=== PATIENT | female | born 1990 | race African-American/Black ===

== ENCOUNTER 2019-08-10 07:35 | Observation (INO) | payer MEDICAID, OTHER ==
--- NOTE | 2019-08-10 08:00 | NUR ---
COVID 19 Test PT consented for COVID 19 test, test collected, PT tolerated well. Test sent to lab
== END 2019-08-10 08:05 | disposition home or self-care (01) | DRG 566 ==
LOC: LDRP 07:35
PROVIDERS: ADMIT Obstetrics & Gynecology; ATTEND Obstetrics & Gynecology
DX: O26.893 Other specified pregnancy related conditions, third trimester (principal); Z11.59 Encounter for screening for other viral diseases; Z3A.38 38 weeks gestation of pregnancy
CPT/HCPCS: G0378; U0003

== ENCOUNTER 2019-08-12 08:10 | Inpatient (IN) | payer MEDICAID ==
[~2019-08-12] VITALS: Ht 160 cm; Wt 78.9 kg
[2019-08-12] VITALS (14 sets, daily range): BP systolic 96–124; BP diastolic 45–73
[2019-08-12] MEDS: LACTATED RINGER'S 1,000 ML IV SCH ×4 (08:45→21:03)
[2019-08-12] MEDS ORDERED: TETRACAINE 1% INJ 2 ML VIAL IJ ONE (09:11)
[2019-08-12 09:22] LABS: Urine Bacteria FEW /hpf (None Seen); Urine Blood Negative /uL (Negative); Urine Mucus FEW (None Seen); Urine Specific Gravity 1.019 (1.001-1.035); Urine WBC 49 /hpf (0 - 5)
[2019-08-12 09:27] LABS: Basophils # (auto) 0 10 ^3/uL (0-0.2); Basophils % (auto) 0.4 % (0.0-2.0); Eosinophils # (auto) 0 10 ^3/uL (0-0.8); Eosinophils % (auto) 0.6 % (0.0-7.0); Hematocrit 39.2 % (36.0-46.0); Hemoglobin 12.9 g/dL (12.2-16.2); Lymphocytes # (auto) 1.3 10 ^3/uL (0.4-5.4); Lymphocytes % (auto) 17.2 % (10.0-50.0); Mean Corpuscular Hemoglobin 31.4 pg (28.0-32.0); Mean Corpuscular Hgb Conc. 32.9 g/dL (32.0-36.0); Mean Corpuscular Volume 95.5 fL (80.0-100.0); Monocytes # (auto) 0.5 10 ^3/uL (0-1.3); Neutrophils # (auto) 5.6 10 ^3/uL (1.6-8.6); Neutrophils % (auto) 74.8 % (37.0-80.0); Nucleated Red Blood Cells % 0.1 %; Platelet Count (auto) 139 10^3/uL (140-450); Red Cell Distribution Width 13.9 % (11.8-14.3); White Blood Cell 7.5 10^3/uL (4.4-10.8)
[2019-08-12] MEDS ORDERED: TERBUTALINE SULFATE 1 MG/ML 1ML VIAL SC ONE ×2 (09:30→09:31)
[2019-08-12 09:32] LABS: INR 0.94 (0.9-1.15); Partial Thromboplastin Time 28.6 sec (23.64-32.05)
[2019-08-12 09:39] LABS: Albumin 3.1 g/dL (3.4-5.0); Calcium 8.7 mg/dL (8.5-10.1)
[2019-08-12 09:41] LABS: Alcohol, Urine < 3.0 mg/dL (0-10); Amphetamine Screen, Urine NEGATIVE (NEGATIVE); Barbiturate Scree,Urine NEGATIVE (NEGATIVE); Benzodiazephine Screen, Urine NEGATIVE (NEGATIVE); Cannabinoid Screen, Urine NEGATIVE (NEGATIVE); Cocaine Screen, Urine NEGATIVE (NEGATIVE); Opiate Scree,Urine NEGATIVE (NEGATIVE); Phencyclidine Screen, Urine NEGATIVE (NEGATIVE)
[2019-08-12 09:42] LABS: BUN/Creatinine Ratio 13.8; Bilirubin, Total 0.7 mg/dL (0.2-1.0); Total Protein 6.9 g/dL (6.4-8.2)
[2019-08-12] MEDS ORDERED: fentaNYL CITRATE 100 MCG/2 ML VL ONE (11:46)
[2019-08-12] MEDS ORDERED: MORPHINE SULF(PF) 0.5MG/ML 10ML VIAL ONE (11:46)
[2019-08-12] MEDS ORDERED: SODIUM CHLORIDE LOCK 10 ML ONE (11:46)
[2019-08-12] MEDS ORDERED: oxyTOCIN 10 UNIT/ML 10ML VIAL ONE (11:46)
[2019-08-12] MEDS ORDERED: ceFAZolin 1GM VL ONE (11:46)
[2019-08-12] MEDS ORDERED: MIDAZOLAM HCL 1MG/1ML-2 ML VIAL ONE (11:46)
[2019-08-12] MEDS ORDERED: ePHEDrine SULFATE 50 MG/ML AMP ONE (11:46)
[2019-08-12] MEDS ORDERED: ONDANSETRON HCL 4 MG/2 ML VIAL ONE (11:46)
[2019-08-12] MEDS ORDERED: BUPIVACAINE/DEXTROSE MPF 0.75% 2 ML AMP IT ONE (13:54)
[2019-08-12] MEDS ORDERED: EPINEPHrine HCL 1 MG/1 ML AMP ONE (13:54)
[2019-08-12] MEDS ORDERED: ceFAZolin 1GM/50ML 50 ML IV SCH (14:45)
[2019-08-12] MEDS ORDERED: ONDANSETRON HCL 4 MG/2 ML VIAL IV PRN (14:45)
[2019-08-12] MEDS ORDERED: ACETAMINOPHEN IV 1000 MG/100ML (10MG/ML) IV ONE (14:45)
[2019-08-12] MEDS ORDERED: HYDROmorphone HCL 2 MG/ML VL IV PRN (14:45)
--- NOTE | 2019-08-12 15:20 | NUR ---
Post Op for LDRP: Report received from pacu jesus RN and sagrario RN. Received patient from PACU via bed B to room 107. Patient A/A/Ox4, abdominal binder and bilateral SCD's are in place, IV fluids placed on pump and infusing per order, incisional site dressing clean/dry/intact and Delgado Catheter to gravity draining clear yellow urine. Incentive Spirometer at bedside and instruction on proper use with return demonstration done by patient.
[2019-08-12] MEDS ORDERED: PREN-96 PO (17:00)
[2019-08-12] MEDS: diphenhdrAMINE HCL 50 MG/1 ML VL IV PRN (17:14)
[2019-08-12] MEDS: KETOROLAC TROMETH 30 MG/ML 1ML VIAL IV SCH (17:48)
[2019-08-12] MEDS: ceFAZolin 1GM/50ML 50 ML IV SCH (21:03)
--- NOTE | 2019-08-12 21:19 | NUR ---
RN called Audrey QUINTERO and gave update on pt. Trending vital signs reviewed. Orders received to give pt a 300 mL bolus of LR and then to recheck the pt blood pressure.
[2019-08-13] VITALS (7 sets, daily range): BP systolic 101–128; BP diastolic 59–70
[2019-08-13] MEDS: KETOROLAC TROMETH 30 MG/ML 1ML VIAL IV SCH ×3 (00:28→11:58)
--- NOTE | 2019-08-13 02:20 | NUR ---
Ambulation: Patient OOB with standby assistance by RN. Patient ambulated to bedside chair with steady gait. Pericare performed by RN teaching provided. Clean gown provided and bed linen changed. Patient ambulated back to bed with steady gait and no distress noted.
--- NOTE | 2019-08-13 04:25 | NUR ---
Huynh catheter dc'd Order to discontinue huynh catheter. Huynh dc'd with clean technique following deflation of balloon. Patient tolerated well with no complaints of pain. 150 ml of clear straw colored urine noted. Continue care.
[2019-08-13] MEDS: ceFAZolin 1GM/50ML 50 ML IV SCH ×2 (04:49→13:17)
[2019-08-13 06:09] LABS: Basophils # (auto) 0.1 10 ^3/uL (0-0.2); Basophils % (auto) 0.5 % (0.0-2.0); Eosinophils # (auto) 0.1 10 ^3/uL (0-0.8); Eosinophils % (auto) 0.6 % (0.0-7.0); Hematocrit 32.3 % (36.0-46.0); Lymphocytes # (auto) 1.2 10 ^3/uL (0.4-5.4); Lymphocytes % (auto) 12.9 % (10.0-50.0); Mean Corpuscular Hemoglobin 32.4 pg (28.0-32.0); Mean Corpuscular Volume 95.4 fL (80.0-100.0); Monocytes # (auto) 0.8 10 ^3/uL (0-1.3); Monocytes % (auto) 8.1 % (0.0-12.0); Neutrophils # (auto) 7.3 10 ^3/uL (1.6-8.6); Neutrophils % (auto) 77.9 % (37.0-80.0); Nucleated Red Blood Cells % 0.1 %; Platelet Count (auto) 115 10^3/uL (140-450); Red Blood Cells 3.38 10^6/uL (4.0-5.20); Red Cell Distribution Width 13.8 % (11.8-14.3); White Blood Cell 9.3 10^3/uL (4.4-10.8)
--- NOTE | 2019-08-13 08:00 | NUR ---
Patient assisted to br, voided 50ml of clear yellow urine. Pericare completed.
[2019-08-13] MEDS ORDERED: HYDROcodone-ACET 5/325MG TAB PO PRN (10:15)
[2019-08-13] MEDS ORDERED: BISACODYL 10 MG RECT SUPP PR PRN (10:15)
[2019-08-13] MEDS: diphenhdrAMINE HCL 50 MG/1 ML VL IV PRN (10:43)
--- NOTE | 2019-08-13 11:19 | NUR ---
Assessment Patient is a 28-year old female who is alert and oriented. Social Service consult regarding history of positive THC during , negative on this visit. Patient and baby drug screen is negative. Discussed with patient UDS and source of positive results. Patient resides with her and will assistance with baby upon discharge. Patient has all supplies as well as car seat for baby and will be bottle feed. Patient has medical insurance for herself and baby and will be following up with provider appt post discharge. Pt has transportation home upon discharge. Due to being history of drug use CPS will not be contacted. Patient has family support. Informed KINJAL Thomson.
--- NOTE | 2019-08-13 19:00 | NUR ---
Bottle-feeding Education: Patient encouraged to breastfeed. Benefits of and the risk of providing formula to was discussed. Patient verbalized understanding of the benefits and is aware of risk and insists on bottle-feeding. Formula provided and instruction on formula preperation from the [facility] booklet reviewed with patient.
[2019-08-13] MEDS: IBUPROFEN 800 MG TAB PO PRN (19:40)
[2019-08-13] MEDS: DOCUSATE SOD 100 MG CAP PO SCH (22:52)
[2019-08-14 03:40] VITALS: BP 101/67
[2019-08-14] MEDS: HYDROcodone-ACET 5/325MG TAB PO PRN ×2 (06:31→15:44)
[2019-08-14 06:55] VITALS: BP 104/66
[2019-08-14 11:25] VITALS: BP 105/60
[2019-08-14] MEDS: DOCUSATE SOD 100 MG CAP PO SCH ×2 (12:49→21:41)
[2019-08-14 15:20] VITALS: BP 120/69
--- NOTE | 2019-08-14 15:54 | NUR ---
IV removal IV DC'd with clean sterile technique, catheter fully intact. Pressure dressing applied to site. Patient tolerated well.
[2019-08-14] MEDS ORDERED: TETANUS-DIPTH-ACEL PERTUSSIS 0.5ML SYR Tdap IM ONE (16:45)
[2019-08-14 19:00] VITALS: BP 96/61
[2019-08-14] MEDS: IBUPROFEN 800 MG TAB PO PRN (21:41)
[2019-08-15 00:30] VITALS: BP 124/70
[2019-08-15 03:00] VITALS: BP 124/70
[2019-08-15 07:00] VITALS: BP 112/66
--- NOTE | 2019-08-15 07:00 | NUR ---
Alva removed by Monisha ROCK CNM Pt tolerated well
--- NOTE | 2019-08-15 07:54 | NUR ---
Discharge: Discharge instructions given as ordered. Pt encouraged to follow up with [facility] as instructed. All questions and concerns addressed. Patient verbalized understanding. Medication reconciliation completed and copy given to patient. All required/requested vaccines given and copies of vaccinations given to patient. Patient encouraged to prepare to depart unit.
--- NOTE | 2019-08-15 08:48 | NUR ---
Discharge: Patient taken to vehicle ambulating with all personal belongings, accompanied by staff and family member. No distress noted at time of departure, no adverse changes in status since initial assessment.
== END 2019-08-15 08:45 | disposition home or self-care (01) | DRG 540 ==
LOC: LDRP 08:10
PROVIDERS: ADMIT Specialist; ATTEND Specialist
PROC: 3E0234Z Introduction of Serum, Toxoid and Vaccine into Muscle, Percutaneous Approach (ICD-10-PCS; 2019-08-12)
PROC: 10D00Z1 Extraction of Products of Conception, Low, Open Approach (ICD-10-PCS; principal; 2019-08-12 12:59)
DX: O34.211 Maternal care for low transverse scar from previous cesarean delivery (principal); O64.0XX0 Obstructed labor due to incomplete rotation of fetal head, not applicable or unspecified; Z37.0 Single live birth; Z3A.39 39 weeks gestation of pregnancy; Z23 Encounter for immunization
CPT/HCPCS: 36415; 59025; 80053; 80307; 81001; 81002; 84112; 85025; 85610; 85730; 86592; 86850; 86900; 86901; 90715; 94762; 96365; 96372; 96374; G0378; J0131; J0171; J0690; J1885; J2250; J2405; J2590

== ENCOUNTER 2022-08-03 10:01 | Observation (INO) | payer MEDICAID ==
[~2022-08-03 10:01] MED LIST: PREN-96 PO
== END 2022-08-03 12:04 | disposition home or self-care (01) ==
LOC: EDBD 10:01 → ER 10:01 → UNDOADMOB 10:18 → LDRP 10:18 → UNDODISOB 12:04
PROVIDERS: ADMIT Obstetrics & Gynecology; ATTEND Obstetrics & Gynecology
DX: O26.893 Other specified pregnancy related conditions, third trimester (principal); R10.9 Unspecified abdominal pain; O99.891 Other specified diseases and conditions complicating pregnancy; M54.9 Dorsalgia, unspecified; O99.323 Drug use complicating pregnancy, third trimester; F12.90 Cannabis use, unspecified, uncomplicated; Z3A.37 37 weeks gestation of pregnancy
CPT/HCPCS: 59025; 81002; 84112; 94760; 99284; G0378; Q0114